=== PATIENT | female | born 1980 | race Hispanic/Latino ===

== ENCOUNTER 2022-09-28 10:38 | Inpatient (IN) | payer BC, SELFPAY ==
--- OUTSIDE RECORDS SUMMARY | 2022-09-28 10:43 | XMS REPORT | Continuity of Care Document ---
:1980 Author Organization [facility] t Address [address] [place] [address] Care Team Providers Name Role Phone Doctor Unassigned, [place] Attending Clinician Unavailable Pob1, Acute Care Clinic Attending Clinician Unavailable Negar Foote Attending Clinician Vineet Price Attending Clinician Vineet Price Admitting Clinician Payers Payer Name Policy Type Policy Number Effective Date Expiration Date S ource Problems Condition Condition Condition Status Onset Resolution Last Treating Co mments Source Name Details Category Date Date Treatment Clinician Date [id number], [id number], Diagnosis Active 2014-05-07 Me moria SLIPT BAND SLIPT BAND 05-03 17:22:00 l Active 00:00: Elmo 05/03/[address] [facility] Bowel Bowel Problem Active 2014-05-09 Christian jake finding finding 23:36:10 l (finding) (finding) Herm kristal Active Problem 05/09/2014 <sup>1</springer p>slippage of gastric band [facility] Reflux Reflux Problem Active 2014-05-09 Christian jake (finding) (finding) 23:36:10 l Active Mohsen Problem 05/09/[address] [facility] ADMINISTRT ADMINISTR Diagnosis Active 2014-05-07 Memoria VE ENCOUNT TVE 17:22:00 l NOS ENCOUNT Mohsen NOS Active [facility] No known No known Disease Unive rs active active ity of problems problems [facility] Allergies, Adverse Reactions, Alerts Allergy Allergy Status Severity Reaction(s) Onset Inactive Treating Comm ents Source Name Type Date Date Clinician NO KNOWN Drug Active Univers ALLERGIE Class ity of S [facility] Social History Social Habit Start Date Stop Date Quantity Comments Source Sex Assigned At [facility] Medical Branch Exposure to Not sure [facility] SARS-CoV-2 (event) Medica l Branch Social History 2014-05-03 2014-05-[address] [facility] 19:57:59 19:57:59 Smoking Status Start Date Stop Date Source Never smoker [facility] Medications Ordered Filled Start Stop Current Ordering Indication Dosage Frequency Signature Comments Components Source Medication Medication Date Date Medication? Clinician (SIG) Name Name TRI-SPRINTE 2020-0 Yes 1{tbl} Take 1 Un toshia C 6-03 tablet by ity of 0.18/0.215/ 00:00: mouth [place] 0.25 mg-35 00 daily. Medical mcg (28) Branch per tablet TRI-SPRINTE 2019-0 Yes 1{tbl} Take 1 Un toshia C 6-03 tablet by ity of 0.18/0.215/ 00:00: mouth [place] 0.25 mg-35 00 daily. Medical mcg (28) Branch per tablet lamoTRIgine 2019-0 Yes Univer s 100 mg 5-28 ity of tablet 00:00: [facility] traZODone 2019-0 Yes Univers 50 mg 5-28 ity of tablet 00:00: [facility] desvenlafax 2019-0 Yes Univer s ine 5-28 ity of succinate 00:00: [place] 25 mg Tb24 [facility] lamoTRIgine 0 Yes Univer s 100 mg 5-28 ity of tablet 00:00: [place] [facility] traZODone 2019-0 Yes Univers 50 mg 5-28 ity of tablet 00:00: [place] [facility] desvenlafax 2019-0 Yes Univer s ine 5-28 ity of succinate 00:00: [place] 25 mg Tb24 [facility] FLUoxetine 0 Yes Univers 20 mg 4-06 ity of capsule 00:00: [place] 00 [facility] FLUoxetine 2019-0 Yes Univers 20 mg 4-06 ity of capsule 00:00: [place] 00 [facility] Famotidine No Notes: Memor ia 05-07 (Same as: l 02:00: Pepcid) Can be dilute in 5-10cc NS IVP: Slow IV push over at least 2 minutes. Ketorolac No 4 days Memor ia 05-06 l 23:00: Elmo Sodium No 25 mL, Memoria Chloride 05-06 Route: IV, l 0.9% IV 22:22: Start Mohsen date: 05/06/14 17:22:00, Duration: 30 day, Stop date: 06/05/14 17:21:00, PRN Line Flush BD Normal No Notes: Memori a Saline 05-06 (Same as: l Flush 22:22: BD Posiflush) Protonix + No Notes: For M emoria sodium 05-06 IV push l chloride 10 21:00: reconstitu te with 10 ml 0.9% sodium chloride and push over 2 minutes. (Same as: Protonix) Metoclopram No Notes: Christian jake kevin 05-06 (Same as: l 21:00: Reglan) Hydromorpho No Notes: Christian jake ne 05-06 (Same as: l 20:30: Dilaudid) conc = 0.5 mg/ml Hydromorph one [employer]ACHINE [employer] Dose: ;Delay: ;Basal: Naloxone No Notes: Memoria 05-06 Same as l 20:25: Narcan Naloxone No 0.04 mg, Memor ia 05-06 Route: l 20:23: IVP, Mohsen 00 Q2MIN, Dosing Weight 85.455, kg, PRN Narcotic Reversal, Start date: 05/06/14 15:23:00, Duration: 30 day, Stop date: 06/05/14 15:22:00 Acetaminoph No Notes: Do M emoria en 20 MG/ML 05-06 not exceed l / 20:23: 4gm/day of Mohsen Hydrocodone acetaminop Bitartrate hen. (Same 0.667 MG/ML as: [place] Oral 325/7.5) Solution Promethazin No Notes: Do M emoria e 05-06 not give l 20:23: IV push. (Same as: Phenergan) enalaprilat No Notes: Christian jake 05-06 (Same as: l 20:23: Vasotec-IV ) Calcium No 1,000 mL, Memor ia Chloride 05-06 Rate: 125 l 0.0014 20:23: ml/hr, Elmo MEQ/ML / 00 Infuse Potassium over: 8 Chloride hr, Route: 0.004 IV, Dosing MEQ/ML / Weight Sodium 85.455 kg, Chloride Total 0.103 Volume: MEQ/ML / 1,000, Sodium Start Lactate date: 0.028 05/06/14 MEQ/ML 15:23:00, Injectable Duration: Solution 30 day, Stop date: 06/05/14 15:22:00 Ondansetron No Notes: Christian jake 05-06 (Same as: l 20:23: Zofran) Mohsen 00 Sodium No 100 mL, Memoria Chloride 05-06 Rate: 10 l 0.154 20:13: ml/hr, Elmo MEQ/ML 00 Infuse Injectable over: 10 Solution hr, Route: IVPB, Dosing Weight 85.455 kg, Total Volume: 100, Infuse at 8 mg / hr for 72 hours for GI bleeding, Start date: 05/06/14 15:13:00, Duration: 72 hr, Stop date: 05/09/14 15:12:00 Ancef No 1 gm, Memoria 05-06 Route: l 19:30: IVPB, Elmo 00 ONCE, Dosing Weight 85.455, kg, Start date: 05/06/14 14:30:00, Duration: 1 doses or times, Stop date: 05/06/14 14:30:00 Ondansetron No Notes: Christian jake 05-06 (Same as: l 18:53: Zofran) Elmo 00 Ephedrine No Notes: Memori a 05-06 (Same as: l 18:53: ePHEDrine Elmo 00 Sulfate) Naloxone No Notes: Memoria 05-06 Same as l 18:53: Narcan Elmo 00 Flumazenil No Notes: Memor ia 05-06 (Same as: l 18:53: Romazicon) Mohsen 00 Calcium No 1,000 mL, Memor ia Chloride 05-06 Rate: 125 l 0.0014 18:53: ml/hr, Mohsen MEQ/ML / 00 Infuse Potassium over: 8 Chloride hr, Route: 0.004 IV, Dosing MEQ/ML / Weight Sodium 85.455 kg, Chloride Total 0.103 Volume: MEQ/ML / 1,000, Sodium Start Lactate date: 0.028 05/06/14 MEQ/ML 13:53:00, Injectable Duration: Solution 30 day, Stop date: 06/05/14 13:52:00 Morphine No Notes: Memoria 05-06 (Same l 18:53: as:MORPhin Mohsen 00 e Sulfate) Hydromorpho No Notes: Christian jake ne 05-06 (Same as: l 18:53: Dilaudid) Elmo Acetaminoph No Notes: Christian jake en 05-06 Infuse l 18:53: over 15 Elmo 00 minutes Do not exceed 4gm/day of acetaminop hen Nexium Yes one tablet Memor ia 9-05 (mg l 19:48: unknown), Elmo 00 PO, Daily, 0 Refill(s) Ranitidine No one tablet M emoria 9-05 (mg l 19:48: unknown), Elmo 00 PO, PRN, reflux, 0 Refill(s) Vital Signs Vital Name Observation Time Observation Value Comments Source Systolic blood 2020-02-18 14:25:00 109 mm[Hg] [facility] Diastolic blood 2020-02-18 14:25:00 69 mm[Hg] [facility] Heart rate 2020-02-18 14:25:00 82 /min [facility] Body temperature 2020-02-18 14:25:00 35.89 Aurelia [facility] Respiratory rate 2020-02-18 14:25:00 18 /min [facility] Body height 2020-02-18 14:25:00 157.5 cm [facility] Body weight 2020-02-18 14:25:00 70.308 kg [facility] BMI 2020-02-18 14:25:00 28.35 kg/m2 [facility] Oxygen saturation in 2020-02-18 14:25:00 98 /min [facility] Arterial blood by [facility] Pulse oximetry Branch Respitory Rate 2014-05-07 16:21:00 Ervin Mei Heart Rate 2014-05-07 16:21:00 [facility] Mohsen Diastolic (mm Hg) 2014-05-07 16:21:00 Mem orial Mohsen Systolic (mm Hg) 2014-05-07 16:21:00 Christian rial Mohsen Temperature Oral (F) 2014-05-07 16:21:00 98.2 F [facility] [place] Temperature Oral (F) 2014-05-07 12:00:00 97.7 F [facility] Respitory Rate 2014-05-07 12:00:00 Memori al Mohsen Heart Rate 2014-05-07 12:00:00 [facility] [place] Systolic (mm Hg) 2014-05-07 12:00:00 Christian rial Elmo Diastolic (mm Hg) 2014-05-07 12:00:00 Mem orial [place]sen Heart Rate 2014-05-07 09:00:00 [facility] [place] Systolic (mm Hg) 2014-05-07 09:00:00 Christian rial Elmo Respitory Rate 2014-05-07 09:00:00 Memori al Elmo Diastolic (mm Hg) 2014-05-07 09:00:00 Mem orial Elmo Temperature Oral (F) 2014-05-07 09:00:00 98.1 F [facility] [place] BMI Calculated 2014-05-03 19:52:00 Memori al Moh[place] Weight 2014-05-03 19:52:00 [facility] [place] Height 2014-05-03 19:52:00 157.48 cm [facility] Elmo Procedures Procedure Date / Time Performing Clinician Source Performed Cholecystectomy [facility] Mohsen Laparoscopic adjustable [facility] gastric banding Encounters Start End Encounter Admission Attending Care Care Encounter Source Date/Time Date/Time Type Type Clinicians Facility Department ID 2020-02-20 2020-02-20 Patient Doctor ELIZABETH [id number] Univers 00:00:00 00:00:00 Secure Msg Unassigned, SATISH [id number] ity of [place] [facility] [id number] Luiz as [id number] [address] 2020-02-18 2020-02-18 Outpatient R [facility] [id number] Univers 09:40:00 09:40:00 ity of [facility] 2020-02-18 2020-02-18 Urgent Pob1, Acute Care Clinic RUST 1. [id number] Univers 09:14:12 09:34:12 [facility] [id number] [place] [id number] Luiz as Matias [id number] Ms dical nal [address] 2014-05-06 2014-05-07 Inpatient Chayito [facility] [id number] Shannan 20:23:00 18:30:00 r Elmo [address] [facility] 2014-05-06 2014-05-07 Outpatient Albert, [id number] 15:23:00 13:30:00 Vineet P [id number] 01 Results Test Description Test Time Test Comments Results Result Sour e Comments SCR MAMM 2021-09-09 BILATERAL SD 08:33:13 CAD DIGITAL Name: Luann : 1980 Sex: F - SCR MAMM BILATERAL SD CAD DIGITALBILATERAL FIRST EVER DIGITAL SCREENING MAMMOGRAM 3D/2D WITH CAD: 2CLINICAL: Asymptomatic. Digital breast tomosynthesis was performed in addition to routine CC and MLO views. Current mammographic images were evaluated by either a [employer] M-Vu or a Dr [employer] ImageChecker CAD (computer aided detection system). No prior exams were available for comparison. The tissue of both breasts is heterogeneously dense. This may lower the sensitivity of mammography. There are benign appearing calcifications in both breasts. No suspicious mass, architectural distortion, malignant type calcification, or lymph node abnormality detected. IMPRESSION: BENIGNThere is no mammographic evidence of malignancy. Resume annual screening mammography in one year. Alberto Lanza/souravrad:09/09/2021 08:33:13 Category Development Manager: Fabiola Shelby MM, [facility] Mammographyletter sent: BIRADS 1-2 Normal Mammogram BI-RADS: 2 Benign HEMATOLOGY 2014-05-07 10:09:00 Test Item Value Reference Range Interpretation Comme nts MCV (test code = MCV) 82.1 80.0-98.0 [facility] [place] [id number] 10:09:00 Test Item Value Reference Range Interpretation Comments RDW (test code = RDW) 13.9 11.5-14.5 [facility] [place] [facility]bu[id number] 10:09:00 Test Item Value Reference Range Interpretation Comments Hgb (test code = Hgb) 12.0 12.0-16.0 [facility] [place] [facility]burgTfzavpsKNOMQDOCRI5717-72-97 10:09:00 Test Item Value Reference Range Interpretation Comments Hct (test code = Hct) 36.2 36.0-48.0 [facility] [place] [facility]burgEjwqtzdIJRSVOCQDI0513-03-68 10:09:00 Test Item Value Reference Range Interpretation Comments MCH (test code = MCH) 27.4 pg 27.0-31.0 [facility] [place] [facility]burgWukrqshTFBRVZPPXY8448-18-20 10:09:00 Test Item Value Reference Range Interpretation Comments MPV (test code = MPV) 8.7 7.4-10.4 [facility] [place] [facility]burgPprzigqBNDRDSQOIE6606-30-61 10:09:00 Test Item Value Reference Range Interpretation Comments MCHC (test code = MCHC) 33.3 32.0-36.0 [facility]burgOztxtjkVGRRPSOHQE3801-11-09 10:09:00 Test Item Value Reference Range Interpretation Comments Platelet (test code = Platelet) 304 133-450 [facility]inburgVpfkijwANCCLMJIRQ7060-87-92 10:09:00 Test Item Value Reference Range Interpretation Comments WBC (test code = WBC) 15.3 3.7-10.4 [facility] [place] [facility]inburgBwafcjqENYFULSEPT9783-37-31 10:09:00 Test Item Value Reference Range Interpretation Comments RBC (test code = RBC) 4.40 4.20-5.40 [facility] [place] [facility]burgPfzbnqwTICJKRCTSG1476-09-88 10:09:00 Test Item Value Reference Range Interpretation Comments Monocytes (test code = Monocytes) 3.6 2.0-12.0 [facility] [place] [facility]burgRosizhjMSPHIFSUAZ1953-03-82 10:09:00 Test Item Value Reference Range Interpretation Comments Lymphocytes (test code = Lymphocytes) 6.9 20.0-40.0 [facility] [place] [facility]inbu[id number] 10:09:00 Test Item Value Reference Range Interpretation Comments Eosinophils (test code = 0.0 See_Comment [A utomated message] The Eosinophils) system which ge nerated this result tra nsmitted reference range : <=4.0. The reference r baltazar was not used to int erpret this result as normal/abnormal . [facility][id number] 10:09:00 Test Item Value Reference Range Interpretation Comments Segs (test code = Segs) 89.5 45.0-75.0 [facility] [place] [facility]burgWntmnqfTCHJAXHQJM1131-20-05 10:09:00 Test Item Value Reference Range Interpretation Comments Eosinophils # (test code 0.0 See_Comment [A utomated message] The = Eosinophils #) system whic h generated this result tra nsmitted reference range : <=0.5. The reference r baltazar was not used to int erpret this result as normal/abnormal . [facility] Edinbu[id number] 10:09:00 Test Item Value Reference Range Interpretation Comments Plt Morph (test code = Normal (05/07/14 5:09 AM) Plt Morph) [facility] E[id number] 10:09:00 Test Item Value Reference Range Interpretation Comments RBC Morph (test code = Normal (05/07/14 5:09 AM) RBC Morph) [facility] EdinburgDwouxkkBUBMFRWHXF6531-48-89 10:09:00 Test Item Value Reference Range Interpretation Comments Monocytes # (test code 0.6 See_Comment [Aut omated message] The = Monocytes #) system which generated this result tra nsmitted reference range : <=0.8. The reference r baltazar was not used to int erpret this result as normal/abnormal . [facility] EdinburgJ[id number] 10:09:00 Test Item Value Reference Range Interpretation Comments Lymphocytes # (test code = Lymphocytes 1.1 1.0-5.5 #) [facility] Ed[id number] 10:09:00 Test Item Value Reference Range Interpretation Comments Segs-Bands # (test code = Segs-Bands #) 13.7 1.5-8.1 [facility] E[id number] 10:09:00 Test Item Value Reference Range Interpretation Comments PTT (test code = PTT) 30.1 s 22.9-35.8 [facility]
[2022-09-28 10:59] LABS: Absolute Lymphocytes (CBC) 1.3 K/uL (0.7-4.9); Hematocrit 35.1 % (36.0-45.0); Lymphocytes % 9.7 % (15.3-44.8); MCV 73.1 fL (80-100); MPV 7.6 fL (7.6-11.3)
[2022-09-28 11:04] LABS: Protime INR 1.04
[2022-09-28] MEDS ORDERED: NA CHLORIDE 0.9% 1,000 ML ONE (11:20)
[2022-09-28 11:21] LABS: ALT/SGPT 37 U/L (13-56); AST/SGOT 28 U/L (15-37); Albumin 3.9 g/dL (3.4-5.0); Alkaline Phosphatase 82 U/L (45-117); BUN Blood Urea Nitrogen 11 mg/dL (7-18); Bicarbonate 19 mmol/L (21-32); Bilirubin Direct 0.1 mg/dL (0-0.2); Bilirubin Total 0.4 mg/dL (0.2-1.0); Glomerular Filtration Rate 65 ml/min (=/>90); Glucose Level 155 mg/dL (74-106); Potassium 4.3 mmol/L (3.5-5.1); Protein, Total 8.2 g/dL (6.4-8.2); Sodium Level 137 mmol/L (136-145)
--- NOTE | 2022-09-28 11:40 | RAD REPORT ---
EXAM DESCRIPTION: CT - Head Brain Wo Cont - 09/28/2022 10:56 am CLINICAL HISTORY: new onset seizure COMPARISON: No comparisons TECHNIQUE: Axial 5 mm thick images of the head were obtained without IV contrast. All CT scans are performed using dose optimization technique as appropriate and may include automated exposure control or mA/KV adjustment according to patient size. FINDINGS: No intracranial hemorrhage, mass, edema or shift of mid-line structures. No acute infarcti on changes seen. No abnormal extra-axial fluid collections. Ventricles are normal. Mastoid air cells and visualized portions of the paranasal sinuses are clear. No acute bony findings. IMPRESSION: Negative non-contrast CT head examination.
[2022-09-28 13:19] LABS: Anisocytosis 1+; Blood Morphology Comment NOTED (NOT SEEN); Hypochromasia 1+; Platelet Estimate INCR; Rouleau SLIGHT; White Blood Cell Scan OK (OK)
--- NOTE | 2022-09-28 13:38 | EDPHYS ---
Physician Documentation [facility] Name: Heather Pearce Age: 42 yrs Sex: Female : 1980 Arrival Date: 09/28/2022 Time: 10:40 Bed 18 Private MD: ED Physician Marcelino Zamudio HPI: 09/28 11:05 This 42 yrs old Female presents to ER via EMS with complaints of Probable rn Seizure. 11:05 The patient presents after having a possible seizure episode. Seizure onset: just prior rn to arrival. Context: the seizure(s) was witnessed, by family, occurred at home, occurred while the patient was at rest. Associated injury: The patient did not suffer any apparent associated injury. Current symptoms: confusion, headache. The patient has not experienced similar symptoms in the past. The patient has not recently seen a physician. EMS reports called out for possible seizure, had single shaking episode prior to arrival, no change in medication, no hx of seizures, no trauma related to or prior to seizure. No fever. NO recent illness. Pt is daily drinker and states last drink yesterday. Denies drug use. Denies overdose or suicidal ideation/intent. . ANALYTICS ASSOCIATE: 10:53 LMP N/A - control method jl Historical: - Allergies: 10:53 No Known Allergies; jl - Home Meds: 10:53 Bupropion Oral [Active]; Focalin oral [Active]; jl7 - PMHx: 10:53 depressive disorder; jl7 - Immunization history:: Adult Immunizations unknown. - Social history:: Smoking status: unknown. - Family history:: not pertinent. - Hospitalizations: : No recent hospitalization is reported. ROS: 13:24 Constitutional: Negative for fever, chills, and weight loss, Eyes: Negative for injury, rn pain, redness, and discharge, Cardiovascular: + palpitations Respiratory: Negative for shortness of breath, cough, wheezing, and pleuritic chest pain, Abdomen/GI: + nausea MS/Extremity: Negative for injury and deformity, Skin: Negative for injury, rash, and discoloration, Neuro: + headache and generalized weakness, + tremors, feels off balance Exam: 13:24 Constitutional: This is a well developed, well nourished patient who is awake, alert, rn apperas both post-ictal and encephalopathic Head/Face: Normocephalic, atraumatic. Eyes: + mild nystagmus bilaterally, pupils 5mm ENT: No oral trauma Neck: No Meningismus. Cardiovascular: Tachycardic, regular Respiratory: No increased work of breathing, no retractions or nasal flaring. Abdomen/GI: Soft, non-tender Skin: Warm, dry, no cyanosis or rash MS/ Extremity: Pulses equal, no cyanosis. Neurovascular intact. Full, normal range of motion. Equal circumference. Neuro: Awake and alert, GCS 15, oriented to person, place, not time. + truncal ataxia, unable to ambulate without assistance. Cranial nerves II-XII grossly intact. Motor strength 4/5 in all extremities with tremor and myoclonus. Sensory grossly intact. 13:43 ECG was reviewed by the Attending Physician. rn Vital Signs: 10:48 BP 101 / 67; Pulse 111; Resp 15; Temp 97.9; Pulse Ox 97% on R/A; jl7 11:57 BP 105 / 75; Pulse 103; Resp 16; Pulse Ox 99% on R/A; iw 14:55 BP 111 / 67; Pulse 99; Resp 18; Pulse Ox 99% on R/A; iw 09/29 07:29 BP 104 / 71; Pulse 93; Resp 17; Temp 98.7(O); Pulse Ox 99% on R/A; kr3 Marcio Coma Score: 09/28 10:53 Eye Response: spontaneous(4). Verbal Response: confused(4). Motor Response: obeys jl7 commands(6). Total: 14. MDM: 10:41 Patient medically screened. rn 12:40 Differential diagnosis: drug overdose, cardiac arrhythmia, seizure. Data reviewed: rn vital signs, nurses notes, lab test result(s), EKG, radiologic studies, CT scan, and as a result, I will admit patient. Management of patient was discussed with the following: Poison control center. Counseling: I had a detailed discussion with the patient and/or guardian regarding: the historical points, exam findings, and any diagnostic results supporting the discharge/admit diagnosis, lab results, radiology results, the need for further work-up and treatment in the hospital, the need to transfer to another facility, [facility] does not immediately have the required specialist. Response to treatment: the patient's symptoms have mildly improved after treatment. ED course: Pt reevaluated, now admits to taking unknown number of duloxetine, bupropion, and focalin around 10 PM last night. This makes much more sense given ataxia and tremors. Pt placed on suicide precautions. . 13:33 ED course: Poison control center recommends admission for 24 hour observation given rn extended release formulation. Pt exhibiting altered mental status, tremor, ataxia. Admitted to Dr. Lindquist. . 09/28 10:44 Order name: CBC with Diff; Complete Time: 13:40 09/28 10:44 Order name: Basic Metabolic Panel; Complete Time: 11:51 rn 09/28 10:44 Order name: Protime (+inr); Complete Time: 11:51 09/28 10:44 Order name: Ptt, Activated; Complete Time: 11:51 09/28 10:44 Order name: LFT's; Complete Time: 11:51 09/28 10:44 Order name: Acetaminophen; Complete Time: 11:51 09/28 10:44 Order name: ETOH Level; Complete Time: 11:51 09/28 10:44 Order name: Salicylate; Complete Time: 11:51 09/28 10:44 Order name: Urine Drug Screen 09/28 13:19 Order name: CBC Smear Scan; Complete Time: 13:40 [facility] 09/28 13:49 Order name: SARS-COV-2 Antigen Rapid 09/28 15:13 Order name: Creatine Phosphokinase [facility] 09/28 15:13 Order name: Magnesium [facility] 09/28 15:13 Order name: Phosphorus [facility] 09/28 15:13 Order name: T4 Free [facility] 09/28 15:13 Order name: Thyroid Stimulating Hormone [facility] 09/28 15:13 Order name: Urinalysis [facility] 09/28 15:13 Order name: Basic Metabolic Panel [facility] 09/28 15:13 Order name: Basic Metabolic Panel [facility] 09/28 15:13 Order name: CBC with Automated Diff [facility] 09/28 15:13 Order name: CBC with Automated Diff [facility] 09/28 17:59 Order name: Urine Dipstick-Ancillary [facility] 09/28 18:02 Order name: Urine --Ancillary (enter results) 09/28 18:09 Order name: Urine --Ancillary [facility] 09/29 00:54 Order name: Lactate w/ 2H reflex if indic. [facility] 09/29 03:57 Order name: Lipid Profile [facility] 09/30 00:36 Order name: Blood Culture [facility] 09/30 00:44 Order name: Blood Culture [facility] 09/30 02:27 Order name: Hemoglobin [facility] 09/30 02:27 Order name: Hematocrit [facility] 09/28 10:44 Order name: CT Head Brain wo Cont; Complete Time: 11:51 rn 09/28 10:44 Order name: IV Start; Complete Time: 10:55 rn 09/28 10:44 Order name: EKG; Complete Time: 10:47 rn 09/28 10:44 Order name: EKG - Nurse/Tech; Complete Time: 10:55 rn 09/28 10:44 Order name: Labs collected and sent; Complete Time: 10:55 rn 09/28 10:44 Order name: Urine Dipstick-Ancillary (obtain specimen); Complete Time: 18:20 rn 09/28 10:44 Order name: Urine Test (obtain specimen); Complete Time: 18:20 rn 09/28 10:44 Order name: Cardiac monitoring; Complete Time: 10:55 rn 09/28 13:39 Order name: Suicide Precautions; Complete Time: 19:23 rn 09/28 13:39 Order name: Suicide Screening ([place]); Complete Time: 19:23 rn 09/28 14:56 Order name: Regular [facility] 09/29 07:17 Order name: Diet Finger Food; Complete Time: 07:18 kr3 09/29 11:00 Order name: MRI [facility] EC:43 Rate is 104 beats/min. Rhythm is regular. QRS [place] is Normal. CT interval is normal. rn QRS interval is normal. QT interval is normal. No Q waves. T waves are Normal. No ST changes noted. Clinical impression: Sinus tachycardia. Interpreted by me. Reviewed by me. Administered Medications: 11:30 Drug: NS 0.9% 1000 ml Route: IV; Rate: 1000 ml; Site: left antecubital; iw 15:15 Follow up: IV Status: Completed infusion iw 12:23 CANCELLED (wrong ptt): Dextrose 10 % in Water 200 ml IV at bolus once jl7 Disposition Summary: 09/28/22 13:38 Hospitalization Ordered Hospitalization Status: Observation rn Provider: Pardeep Lindquist rn Condition: Stable rn Problem: new rn Symptoms: have improved rn Bed/Room Type: Standard rn Location: [facility] ER HOLD(09/30/22 18:56) Room Assignment: ERHOLD-(09/30/22 18:56) Diagnosis - Altered mental status, unspecified rn - Other seizures rn - Suicidal ideations rn - Intentional overdose rn - Serotonin Syndrome rn Forms: - Medication Reconciliation Form rn - SBAR form rn Signatures: Dispatcher [employer] EDNicci Munoz, RN RN Marcelino Zamudio MD MD rn Martinez, Eric em1 Jenifer Aparicio RN RN Kike Quarles, RN RN 7 Long Carter, RN RN [facility] Corrections: (The following items were deleted from the chart) 12:23 12:20 Dextrose 10 % in Water 200 ml IV at bolus once ordered. jl7 marsha7 12:23 12:22 Dextrose 10 % in Water 200 ml IV at bolus once given. marsha7 [email or web address] 12:23 12:22 Dextrose 10 % in Water 200 ml IV at bolus once ordered. jl7 marsha7 19:04 13:38 Telemetry/MedSurg (observation) rn marsha7 19:04 13:38 rn marsha7 09/30 15:56 09/28 19:04 [facility] ER HOLD jl7 09/30 15:56 09/28 19:04 ERHOLD- jl7 1 09/30 17:31 15:56 402 1 em1 18:56 15:56 Telemetry/MedSurg (observation) [facility] 18:56 17:31 em1
--- NOTE | 2022-09-28 13:38 | ER ---
Nurse's Notes [facility] Name: Heather Pearce Age: 42 yrs Sex: Female : 1980 Arrival Date: 09/28/2022 Time: 10:40 Bed 18 Private MD: Diagnosis: Altered mental status, unspecified;Other seizures;Suicidal ideations;Intentional overdose;Serotonin Syndrome Presentation: 09/28 10:40 Chief complaint: EMS states: Toned out for possible seizure, no hx of seizures, long jl7 standing ETOH use, reports 3 beers/day, unsure when last drink was. 10:48 Coronavirus screen: At this time, the client does not indicate any symptoms associated jl7 with coronavirus-19. Ebola Screen: No symptoms or risks identified at this time. Initial Sepsis Screen: Does the patient meet any 2 criteria? No. Patient's initial sepsis screen is negative. Does the patient have a suspected source of infection? No. Patient's initial sepsis screen is negative. Risk Assessment: Do you want to hurt yourself or someone else? Patient reports no desire to harm self or others. Onset of symptoms was September 28, 2022. Care prior to arrival: Glucose check: 152. 10:48 Method Of Arrival: EMS: [facility] jl7 10:48 Acuity: ZANDER 3 jl7 Triage Assessment: 10:53 General: Appears in no apparent distress. uncomfortable, Behavior is calm, cooperative, jl7 appropriate for age. Pain: Denies pain. Neuro: Level of Consciousness is awake, alert, obeys commands, Oriented to person, place. Cardiovascular: Patient's skin is warm and dry. Respiratory: Airway is patent Respiratory effort is even, unlabored, Respiratory pattern is regular, symmetrical. Derm: Skin is pink, warm \\T\\ dry. 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 - Social history:: Smoking status: unknown. - Family history:: not pertinent. - Hospitalizations: : No recent hospitalization is reported. Screenin:56 [facility] ED Fall Risk Assessment (Adult) History of falling in the last 3 months, iw including since admission No falls in past 3 months (0 pts) Confusion or Disorientation No (0 pts) Intoxicated or Sedated Impaired Gait No (0 pts) Mobility Assist Device Used No (0 pt) Score/Fall Risk Level. Nutritional screening: No deficits noted. Tuberculosis screening: No symptoms or risk factors identified. 18:00 Abuse screen: Denies threats or abuse. Denies injuries from another. jl7 Assessment: 11:00 Reassessment: Pt gave this nurse verbal authorization to discuss medical information jl7 with ex- and other family members that are in the room. 11:55 Reassessment: Patient appears in no apparent distress at this time. mother at bedside, iw IVF infusing to left AC. 12:50 Reassessment: Pt reported taking unknown amount of Duloxetine, bupropion, and Focalin aa5 to Dr. Zamudio. Contacted poison control, Case # [id number], spoke to Antione at [facility]. Recommendations per poison control are as follow: seizure precautions, supportive care, continuous monitoring, administer benzodiazepines as needed, monitor for at least 24 hrs post ingestion, pt is at risk for serotonin syndrome. MD notified of recommendations. . 14:54 Reassessment: Patient appears in no apparent distress at this time. pt still exhibiting iw shakiness and tremors, still seems confused at times, ex- at bedside. 15:13 Reassessment: pt assisted to bedside commode, still unsteady on feet, shaky, pt iw oriented to person, place, confused about time , pt unable to urinate at this time, will notify admitting hospitalist. 09/29 07:27 Reassessment: Patient appears in no apparent distress at this time. patient alone at kr3 this time, no shakes noted at this time. 08:17 Reassessment: patient to [facility]. kr3 09:08 Reassessment: back from [facility]. kr3 09/30 19:27 Reassessment: Patient and/or family updated on plan of care and expected duration. Pain ha1 level reassessed. Patient is alert, oriented x 3, equal unlabored respirations, skin warm/dry/pink. being transfer by [facility] Patient denies pain at this time. Psych: 07:05 [place] Suicide Severity Screening: In the past month, have you wished you were db or wished you could go to sleep and not wake up? Patient responds "yes." "In the past month, have you actually had any thoughts of killing yourself?" Patient responds "yes." "In your lifetime, have you ever done anything, started to do anything, or prepared to do anything to end your life?" Patient responds "yes." Patient reports suicidal intent within 3 past months. Subjective: Patient's mood is calm Delusions are denied, Hallucinations are denied Having thoughts of suicide. Plan for suicide is OD on medications see previous nursing note. Objective: Patient is cooperative, Speech is normal, Affect is appropriate. Interventions: Removed personal items and placed in bag. Patient placed in hospital gown. Safety Checks: Door is open. No visitors are present at this time. Pt denies substance abuse. Commitment: Patient will be a voluntary commitment. Vital Signs: 09/28 10:48 BP 101 / 67; Pulse 111; Resp 15; Temp 97.9; Pulse Ox 97% on R/A; jl7 11:57 BP 105 / 75; Pulse 103; Resp 16; Pulse Ox 99% on R/A; iw 14:55 BP 111 / 67; Pulse 99; Resp 18; Pulse Ox 99% on R/A; iw 09/29 07:29 BP 104 / 71; Pulse 93; Resp 17; Temp 98.7(O); Pulse Ox 99% on R/A; kr3 Gower Coma Score: 09/28 10:53 Eye Response: spontaneous(4). Verbal Response: confused(4). Motor Response: obeys jl7 commands(6). Total: 14. ED Course: 10:40 Patient arrived in ED. jl7 10:41 Marcelino Zamudio MD is Attending Physician. rn 10:53 Triage completed. jl7 10:53 Arm band placed on right wrist. jl7 10:55 Kike Quarles RN is Primary Nurse. jl7 10:58 CT Head Brain wo Cont In Process Unspecified. EDMS 11:00 Patient has correct armband on for positive identification. Client placed on continuous jl7 cardiac and pulse oximetry monitoring. NIBP monitoring applied. 11:56 Maintain EMS IV. Dressing intact. Good blood return noted. Site clean \\T\\ dry. Gauge \\T\\ iw site: 20 LAC. 12:00 Initial lab(s) drawn, by ED staff, sent to lab. jl7 13:37 Pardeep Lindquist MD is Hospitalizing Provider. rn 15:00 No provider procedures requiring assistance completed. Patient admitted, IV remains in jl7 place. intact, No redness/swelling at site. 15:00 EKG done, by ED staff, reviewed by Marcelino Zamudio MD. jl7 19:22 Primary Nurse role handed off by Kike Quarles RN mw2 19:24 Seizure precautions initiated. jl7 09/29 08:17 Radha Ritter, RN is Primary Nurse. kr3 Administered Medications: 09/28 11:30 Drug: NS 0.9% 1000 ml Route: IV; Rate: 1000 ml; Site: left antecubital; iw 15:15 Follow up: IV Status: Completed infusion iw 12:23 CANCELLED (wrong ptt): Dextrose 10 % in Water 200 ml IV at bolus once jl7 Medication: 11:56 VIS not applicable for this client. iw Outcome: 13:38 Decision to Hospitalize by Provider. rn 18:00 Admitted to ER Hold. Please see [facility] for further documentation. jl7 18:00 Condition: stable 18:00 Discharge instructions given to patient, family, Instructed on the need for admit, Demonstrated understanding of instructions. 09/30 19:34 Patient left the ED. ha1 Signatures: Dispatcher [employer] EDMS Nicci Mendoza, HENRY FIGUEROA Marcelino Zamudio MD MD rn Calderon, Audri RN RN 5 Kike Quarles RN RN 7 Letha Su mw2 Esther Ramos RN RN ha1 Radha Ritter, HENRY FIGUEROA 3 Nehal Trujillo RN RN db Corrections: (The following items were deleted from the chart) 09/28 12:22 11:45 Dextrose 10 % in Water 200 ml IV at bolus in right forearm jl7 jl7 13:27 12:50 Reassessment: Contacted poison control, Case # [id number], spoke to Antione at [address] location. Recommendations per poison control are as follow: seizure precautions, supportive care, continuous monitoring, administer benzodiazepines as needed, monitor for at least 24 hrs post ingestion, pt is at risk for serotonin syndrome. notified of recommendations. . aa5
[2022-09-28] MEDS ORDERED: ACETAMINOPHEN 325 MG TABLET PO PRN (14:48)
[2022-09-28 15:07] LABS: SARS-CoV-2 Antigen Rapid Res Negative (Negative)
[2022-09-28] MEDS ORDERED: ONDANSETRON 4 MG/2 ML VIAL IV PRN (15:19)
[2022-09-28 17:01] LABS: Magnesium 2.2 mg/dL (1.6-2.4); Phosphorus 4.5 mg/dL (2.5-4.9); Thyroid Stimulating Hormone 1.57 uIU/mL (0.358-3.740)
[2022-09-28 17:59] LABS: Urine Blood Negative (Negative); Urine Glucose Negative (Negative); Urine Protein 1+ (Negative); Urine Specific Gravity >=1.030 (1.005-1.030)
[2022-09-28] MEDS: chlordiazePOXIDE HCl 5 MG CAP PO SCH (18:00)
[2022-09-28] MEDS ORDERED: chlordiazePOXIDE HCl 5 MG CAP PO ONE ×2 (18:07→21:23)
[2022-09-28] MEDS ORDERED: ENOXAPARIN 40 MG/0.4 ML SQ ONE (18:07)
[2022-09-28 18:09] LABS: Urine Specific Gravity/Preg >1.030 (1.005-1.030)
[2022-09-28] MEDS: ENOXAPARIN 40 MG/0.4 ML SQ SCH (18:18)
[2022-09-28 18:23] LABS: Barbiturates NEGATIVE (NEGATIVE); Benzodiazepines NEGATIVE (NEGATIVE); Cocaine NEGATIVE (NEGATIVE); METHAMPHETAM NEGATIVE (NEGATIVE); Methadone NEGATIVE (NEGATIVE); Opiates NEGATIVE (NEGATIVE); Phencyclidine NEGATIVE (NEGATIVE); THC Cannibis NEGATIVE (NEGATIVE)
--- NOTE | 2022-09-28 19:15 | P.HP ---
Certification for Inpatient Patient admitted to: Inpatient With expected LOS: >2 Midnights Patient will require the following post-hospital care: None Practitioner: I am a practitioner with admitting privileges, knowledge of patient current condition, hospital course, and medical plan of care. Services: Services provided to patient in accordance with Admission requirements found in Title 42 Section 412.3 of the Code of Federal Regulations <Erick Buenrostro - Last Filed: 09/28/22 19:39> Patient History Date of Service: 09/28/22 Reason for admission: Suicide attempt. History of Present Illness: Patient is a 42-year-old female with a past medical history significant for depression, suicide attempt, ADHD, nicotine dependence, alcohol abuse who presents with complaint of attempted suicide. Patient reported that she wanted to commit suicide due to her inability to find a job. Patient took multiple tablets of duloxetine, bupropion and Focalon. Patient indicated that she does not remember how many tablets she took. Patient is alert and oriented x2 and confused. Family reported that patient's son called them that her mother was not doing fine and patient's father went to see her and he noticed that patient was not well. Shortly after patient started having seizures. Patient has never had any seizures in the past. Family reported that patient had seizures for about a minute. No other signs and symptoms reported. Symptoms are aggravated or relieved by nothing. Patient was brought to the hospital for medical evaluation. - Past Medical/Surgical History Has patient received pneumonia vaccine in the past: No -: Depression -: ADHD -: Nicotine dependence -: Alcohol abuse Past Surgical History: Reviewed- Non-Contributory - Social History Smoking Status: Current every day smoker Counseled patient to stop smoking for: less than 10 minutes Smoking therapy provided: Yes Patient receptive to therapy: No Alcohol use: Yes CD- Drugs: No Caffeine use: No Place of Residence: Home <Erick Buenrostro - Last Filed: 09/28/22 19:39> Date of Service: 09/29/22 <Pardeep Lindquist - Last Filed: 09/29/22 00:03> Allergies No Known Allergies Allergy (Unverified 09/28/22 15:23) Home Medications: Dexmethylphenidate HCl [Focalin] 10 mg PO BID 09/28/22 Duloxetine HCl 60 mg PO BEDTIME 09/28/22 Review of Systems is unable to be obtained (Unable to assess. Patient confused.) <Erick Buenrostro - Last Filed: 09/28/22 19:39> Physical Examination - Vital Signs Temperature: 97.9 F Blood Pressure: 121/74 Pulse: 97 Respirations: 15 Pulse Ox (%): 99 - Physical Exam General: Alert, In no apparent distress, Oriented x2, Confused HEENT: Atraumatic, PERRLA, Mucous membr. moist/pink, EOMI, Sclerae nonicteric Neck: Supple, 2+ carotid pulse no bruit, No LAD, Without JVD or thyroid abnormality Respiratory: Clear to auscultation bilaterally, Normal air movement Cardiovascular: No edema, Regular rate/rhythm, Normal S1 S2 Capillary refill: <2 Seconds Gastrointestinal: Normal bowel sounds, No tenderness Musculoskeletal: No clubbing, No swelling, No tenderness Integumentary: No rashes, No tenderness/swelling Neurological: Normal speech, Normal tone, Normal affect Lymphatics: No axilla or inguinal lymphadenopathy - Studies Laboratory Data (last 24 hrs) 09/28/22 10:50: Phosphorus 4.5, Magnesium 2.2 09/28/22 10:50: PT 11.4, INR 1.04, APTT 26.9 09/28/22 10:50: Sodium 137, Potassium 4.3, BUN 11, Creatinine 1.09 H, Glucose 155 H, Total Bilirubin 0.4, AST 28, ALT 37, Alkaline Phosphatase 82 09/28/22 10:50: WBC 13.60 H, Hgb 10.7 L, Hct 35.1 L, Plt Count 457 H <Erick Buenrostro - Last Filed: 09/28/22 19:39> - Studies Laboratory Data (last 24 hrs) 09/28/22 10:50: Phosphorus 4.5, Magnesium 2.2 09/28/22 10:50: PT 11.4, INR 1.04, APTT 26.9 09/28/22 10:50: Sodium 137, Potassium 4.3, BUN 11, Creatinine 1.09 H, Glucose 155 H, Total Bilirubin 0.4, AST 28, ALT 37, Alkaline Phosphatase 82 09/28/22 10:50: WBC 13.60 H, Hgb 10.7 L, Hct 35.1 L, Plt Count 457 H <Pardeep Lindquist - Last Filed: 09/29/22 00:03> Assessment and Plan - Plan --Suicide attempt. Patient took multiple tablets of duloxetine, bupropion and Focalon pills. Suicide precautions. One-to-one sitter. Patient has a history of suicide attempt. No psychiatrist on-call today. Once patient is medically cleared, [facility] psychiatrist will be called for further management. Continue supportive care. --Depression\ADHD. We will hold off on home medication due to overdose on home medications. Continue supportive care. --Altered mental status. Secondary to medication overdose. CT head unremarkable for any acute intracranial abnormality. Continue supportive care. --Seizures. Patient has not had any seizures in the past. Unclear etiology. MRI brain pending. Neurology consulted. We will further recommendations. --Alcohol abuse. Patient placed on banana bag, Librium and Ativan as needed. [facility] protocol. --Leukocytosis. Likely reactive. We will continue to monitor WBC levels. --Anemia of chronic disease. H&H stable. We will continue to monitor hemoglobin and transfuse if less than 7.0. --UTI POA. Patient placed on antibiotics. Urine cultures pending. --DVT prophylaxis with Lovenox subq. Discharge Plan: Home Plan to discharge in: Greater than 2 days - Advance Directives Does patient have a Living Will: No Does patient have a Durable POA for Healthcare: No - Code Status/Comfort Care Code Status Assessed: Yes Physician Review: Patient Assessed, Agree with Above Assessment and Plan Critical Care: No <Erick Buenrostro - Last Filed: 09/28/22 19:39> Physician Review: Patient Assessed, Agree with Above Assessment and Plan Physician Review Additional Text: She meets sepsis criteria based on heart rate and leukocytosis, with concern for UTI. Will add lactate and blood cultures. Once medically stable, will consult [facility]. In the interim, will place on suicide precautions. <Pardeep Lindquist - Last Filed: 09/29/22 00:03>
[2022-09-28] MEDS ORDERED: INFLUENZA VACCINE (for 6+ mo) 0.5 ML DOSE IMVAC ONE ×2 (20:00→21:25)
[2022-09-28] MEDS: CEFTRIAXONE 1,000 MG in NA CHLORIDE 0.9% 50 ML IVPB SCH (21:00)
[2022-09-28] MEDS ORDERED: NA CHLORIDE 0.9% 100 ML ONE ×2 (21:23→21:28)
[2022-09-28] MEDS ORDERED: CEFTRIAXONE 1000 MG/VIAL ONE (21:23)
[2022-09-29] MEDS ORDERED: LORazepam 2 MG/ML VIAL IV ONE (00:04)
[2022-09-29] MEDS ORDERED: LORazepam 2 MG/ML VIAL ONE ×3 (00:08→21:57)
[2022-09-29 02:56] LABS: Hematocrit 29.6 % (36.0-45.0); MCV 71.8 fL (80-100); MPV 7.6 fL (7.6-11.3); RBC Red Blood Cell Count 4.12 M/uL (3.86-4.86)
[2022-09-29 03:39] LABS: Potassium 3.5 mmol/L (3.5-5.1)
[2022-09-29] MEDS ORDERED: chlordiazePOXIDE HCl 5 MG CAP PO ONE ×3 (05:17→18:56)
[2022-09-29] MEDS: chlordiazePOXIDE HCl 5 MG CAP PO SCH ×4 (05:37→18:00)
[2022-09-29] MEDS: ASPIRIN 81 MG CHEWABLE TABLET PO SCH (09:00)
[2022-09-29] MEDS: FOLIC ACID 1 MG, MULTIVITAMINS INJ 10 ML, THIAMINE HCL 100 MG in NA CHLORIDE 0.9% 1,000 ML IV SCH (09:00)
[2022-09-29] MEDS: ENOXAPARIN 40 MG/0.4 ML SQ SCH (09:00)
[2022-09-29] MEDS ORDERED: ASPIRIN 81 MG CHEWABLE TABLET ONE (09:18)
[2022-09-29] MEDS ORDERED: ENOXAPARIN 40 MG/0.4 ML SQ ONE (09:19)
[2022-09-29] MEDS: LORazepam 2 MG/ML VIAL IV PRN ×2 (09:36→22:04)
--- NOTE | 2022-09-29 10:59 | RAD REPORT ---
EXAM DESCRIPTION: MRI - Brain Wo Cont - 09/29/2022 10:35 am CLINICAL HISTORY: Seizure, right-sided weakness COMPARISON: No comparisons TECHNIQUE: Sagittal T1-weighted images were obtained along with axial PD, heavily T2-weighted and T2 -FLAIR images. Axial DWI and ADC mapping sequences were also obtained along with coronal heavily T2-w eighted images. FINDINGS: No intracranial hemorrhage, mass or acute infarction. There is no edema or shift of midlin e structures. No extra-axial fluid collections. Valero-matter/white matter junction is preserved. Signa l voids are seen as a normal finding in the major intracranial vessels. Ventricles are normal. There is no volume loss or chronic ischemic change identifiable. The medial temporal lobe assessment is limited due to the amount of motion present on the examination . No medial temporal lobe asymmetry identifiable. Mastoid air cells and paranasal sinuses are clear. IMPRESSION: No acute or subacute infarction. No significant intracranial finding identifiable.
[2022-09-29 15:29] VITALS: BMI 31.2
--- NOTE | 2022-09-29 18:20 | P.PN ---
Subjective Date of Service: 09/29/22 Chief Complaint: Suicide attempt. Overnight, her mental status has improved significantly. We had a lengthy discussion regarding her motives for this suicide attempt, and she mentions that the primary motive was the inability to find a job and the fact that she just lost her job. This is her second suicide attempt, reporting that she attempted to hang herself about a year ago. Following that attempt, she was hospitalized at [facility] in [place], [place]. She states that she does not wish to be in this facility again. She states that she often is stressed and relies on alcohol as a stress reliever. With her permission, I spoke with her psychiatrist, Dr. Ollie Marks. Dr. Marks mentions to me that the last time she saw her was July 2022, and she struggles with alcohol abuse. She had an appointment in mid August 2022, but did not make this appointment. Dr. Marks endorses significant concern that she may attempt suicide again and agrees that she would benefit from inpatient psychiatric hospitalization. Per Dr. Marks, she believes that she has impaired capacity as evidenced by her history of depression, substance abuse, and multiple suicide attempts. I had a thorough discussion with Ms. Pearce regarding a safe disposition plan. Present for this discussion was her father (Mr. Pruett), her mother (Ms. Williamson), her son (Mr. Carter), and her bedside nurse (Ms. Romero RN). I discussed my recommendation for inpatient psychiatric hospitalization and informed her that Dr. Marks shares the same opinion with me. Ms. Pearce agreed with our recommendations and states that she will voluntarily go to an inpatient psychiatric facility for further treatment of her psychiatric condition and alcohol use disorder. Review of Systems 10-point ROS is otherwise unremarkable Other: History of suicidal ideation, intention, plan, and attempt Physical Examination - Vital Signs Temperature: 98.8 F Blood Pressure: 118/78 Pulse: 97 Respirations: 16 Pulse Ox (%): 100 - Physical Exam General: Alert, In no apparent distress, Oriented x3 HEENT: Atraumatic, EOMI, Sclerae nonicteric Neck: JVD not distended Respiratory: Clear to auscultation bilaterally, Normal air movement Cardiovascular: No edema, Regular rate/rhythm, No murmurs Gastrointestinal: Normal bowel sounds, Soft and benign, No tenderness Musculoskeletal: No clubbing Integumentary: No rashes Neurological: Normal speech, Normal affect Assessment And Plan - Plan # Suicide Attempt by Intentional Drug Overdose complicated by likely Serotonin Syndrome (improved) # Acute Metabolic Encephalopathy and Seizure secondary to above # Alcohol Use Disorder # Depression # ADHD - She reports intentionally overdosing on duloxetine, bupropion, and dexme thylphenidate - I have spoken with her psychiatrist Dr. Marks, who recommends inpatient psychiatric hospitalization - [facility] recommended discharge with outpatient psychiatry, which I respectfully disagree with - Myoclonus resolved from yesterday's exam - CT head = "negative non-contrast CT head examination." - MRI brain = "no acute or subacute infarction. No significant intracranial finding identifiable." - Suicide precautions with sitter - Continue banana bag, chlordiazepoxide, and CIWA protocol # KDIGO Stage I Acute Kidney Injury (resolved) - Creatinine = 1.09 -> 0.69 - Urinalysis = 2+ ketones, positive nitrite, 1+ protein - Monitor creatinine and urine output - If worsening, obtain renal ultrasound - Renally dose medications # Possible Sepsis secondary to Urinary Tract Infection She met sepsis criteria based on HR > 90 bpm and WBC > 12,000 and the possible source is urinary. - Sepsis order set was initiated - Initial Lactate was 0.9 - Blood cultures drawn - Broad spectrum antibiotics started: Ceftriaxone - In regards to fluids: - 30 mL/kg of IV fluids was not administered given SBP > 90, MAP > 65, la ctic acid < 4 # Microcytic Anemia - suspect Iron-Deficiency Anemia - Her Mentzer index > 13, which is suspicious for iron-deficiency anemia - Started ferrous sulfate Pardeep Lindquist M.D.
[2022-09-29 20:37] VITALS: O2SAT 100
[2022-09-29] MEDS: CEFTRIAXONE 1,000 MG in NA CHLORIDE 0.9% 50 ML IVPB SCH (21:50)
[2022-09-29] MEDS ORDERED: CEFTRIAXONE 1000 MG/VIAL ONE (21:57)
[2022-09-29] MEDS ORDERED: NA CHLORIDE 0.9% 50 ML ONE (21:58)
[2022-09-30] MEDS: chlordiazePOXIDE HCl 5 MG CAP PO SCH ×4 (01:00→18:00)
[2022-09-30 02:24] LABS: Hematocrit 29.4 % (36.0-45.0)
[2022-09-30] MEDS ORDERED: chlordiazePOXIDE HCl 5 MG CAP PO ONE ×4 (04:50→19:05)
[2022-09-30] MEDS ORDERED: POTASSIUM 25 MEQ EFFERV TAB PO ONE (09:00)
[2022-09-30] MEDS: ENOXAPARIN 40 MG/0.4 ML SQ SCH (09:00)
[2022-09-30] MEDS: ASPIRIN 81 MG CHEWABLE TABLET PO SCH (09:00)
[2022-09-30] MEDS: FOLIC ACID 1 MG, MULTIVITAMINS INJ 10 ML, THIAMINE HCL 100 MG in NA CHLORIDE 0.9% 1,000 ML IV SCH (09:00)
[2022-09-30] MEDS ORDERED: FERROUS SULFATE 325 MG TAB PO SCH (09:00)
[2022-09-30] MEDS ORDERED: ENOXAPARIN 40 MG/0.4 ML SQ ONE (09:44)
[2022-09-30] MEDS ORDERED: POTASSIUM 25 MEQ EFFERV TAB ONE (09:44)
[2022-09-30] MEDS ORDERED: ASPIRIN EC 81 MG TAB PO ONE (09:44)
[2022-09-30] MEDS ORDERED: ASPIRIN 81 MG CHEWABLE TABLET ONE (09:52)
[2022-09-30] MEDS ORDERED: LORazepam 2 MG/ML VIAL ONE (11:03)
[2022-09-30] MEDS: LORazepam 2 MG/ML VIAL IV PRN (11:09)
--- NOTE | 2022-09-30 15:16 | CON ---
Reason For Consultation: Consultation called because of seizure after suicide attempt. History Of Present Illness: Ms. Pearce is a 42-year-old patient with depression, attention deficit h yperactivity disorder, alcohol and cocaine dependency and abuse who apparently attempted suicide migue use she could not find a job. She took reportedly a number of duloxetine, bupropion, and Focalon pil ls. Patient was unable to tell how many she took. Family said she was disoriented and confused and that the patient's mother and father who noticed that she is not doing well. At that point, she repo rtedly went to a seizure which is not described, but the event apparently lasted about a minute and s he was then brought to [facility] for evaluation. Her white blood cell count was elevated a t 13.6, 84% neutrophils, that was possibly related to demargination from seizure. Hemoglobin 10.7. Her INR was normal 1.04. Chemistries showed mild dehydration. Creatinine elevated at 1.09. Her blo od glucose was 155. She had normal calcium, normal liver function studies, normal thyroid function s tudies. Urinalysis showed positive nitrite, 2+ ketone, 1+ protein. Her serum alcohol level was 24 t o half times upper limit of normal. Otherwise, the drug screen was negative. COVID testing negative . Head CT scan showed no acute ischemic or hemorrhagic findings and subsequent brain MRI also showed no acute ischemic or hemorrhagic abnormalities. Studies were unremarkable. She reportedly on furth er evaluation by the hospitalist appeared to have shaking consistent with the serotonergic syndrome w hich is possible as she overdosed those antidepressants which can promote serotonin syndrome. At thi s point, she has largely resolved and normal level of functioning with no antiepileptic medication on board. There is a plan to send her to a psychiatric facility at [facility] in [facility]. Past Medical History: As noted above. Past Surgical History: None. Social History: Patient smokes and drinks alcohol regularly. No IV drug use. Allergies: NO KNOWN DRUG ALLERGIES. Home Medications: Focalin and duloxetine. Focalin 10 mg twice a day. Duloxetine 60 mg at bedtime. Family History: Noncontributory. Review of Systems: Aside from the reason for coming in, she had no fevers, chills, nausea, vomiting, myalgias, arthralgi as, rash, weight change, headache. No genitourinary or gastrointestinal abnormalities. Physical Examination: Vital Signs: Blood pressure 106/64, pulse 84 up to 110, respiratory rate 14 to 18, temperature 98.2, oxygen saturation 99% to 100% on room air, weight 171 pounds, height 5 feet 10 inches. BMI 31.3. General: Ms. Pearce is lying in bed. Her ex- is also lying in the bed with her and her mothe r is at bedside. HEENT: She is normocephalic, atraumatic. Sclerae anicteric. Oropharynx is pink and moist. Neck: Supple. Chest: Clear. Heart: Regular. Extremities: Show no clubbing, cyanosis, or edema. Neurological: She is alert and oriented to person, place, time, and situation. She follows all comm ands appropriately. She has no cranial nerve deficits. No focal motor, coordination, or sensory gai t deficit. Reflexes 2+ upper and lower extremities. Assessment: Ms. Pearce is a 42-year-old patient in the emergency room after a suicide attempt and an apparent seizure likely related to serotonin syndrome. She has no neurological deficits and brain M RI and brain CT scan are unremarkable. She is being treated with Rocephin for urinary tract infectio n. She is currently on aspirin along with Lovenox, ferrous sulfate, folic acid, and Zofran. Plan: She should be admitted to a psychiatric facility to further evaluate and manage her to help mi tigate the risk of additional attempts of suicide and she at this point does not require antiepilepti c medications. She should have all medications carefully monitored and if she is able to at some poi nt, a routine electroencephalogram may be helpful. If this study does show focal abnormalities, ther e is a potential that she may require antiepileptics. If this study is normal, no antiepileptics is likely required. In any event, the patient and family should maintain a seizure diary and after disc harge from perhaps a psychiatric facility, she may follow up in Dr. Storey's office 1 month later. CHRISTOPHER/ELMER Voice ID: [id number] Report ID: [id number]
[2022-09-30 16:32] VITALS: BP 116/64; TEMP 98
--- NOTE | 2022-09-30 18:19 | P.DS ---
Admission Date: 09/28/22 Discharge Date: 09/30/22 Disposition: TRANSFR TO OTHER-PSY/CD/REHAB Discharge Condition: GOOD Reason for Admission: Suicide attempt. Consultations: 1. Neurology Hospital Course: DIAGNOSES: # Suicide Attempt by Intentional Drug Overdose complicated by likely Serotonin Syndrome (improved) # Acute Metabolic Encephalopathy and Seizure secondary to above # Alcohol Use Disorder # Depression # ADHD # KDIGO Stage I Acute Kidney Injury (resolved) # Possible Sepsis secondary to Urinary Tract Infection (resolved) # Microcytic Anemia - suspect Iron-Deficiency Anemia HOSPITAL COURSE: Ms. Heather Pearce is a 42 year old female with a past medical history significant for alcohol use disorder, depression, ADHD, and prior suicide attempt who was admitted to the [facility] on 09/28/2022 for an attempted suicide by intentional drug ingestion. She was admitted to the Medicine service. Upon further evaluation, she was found to have acute metabolic encephalopathy, seizure, and suspected serotonin syndrome. [facility] was contacted by the emergency department, and it was apparently recommended that she be observed for 24 hours with IV fluids. Over her hospital course, her mental status has improved significantly. We had a lengthy discussion regarding her motives for this suicide attempt, and she ment ioned that the primary motive was the inability to find a job and the fact that she just lost her job. This is her second suicide attempt, reporting that she attempted to hang herself about a year ago. Following that attempt, she was hospitalized at [facility] in [place], [place]. She states that she does not wish to be in this facility again. She states that she often is stressed and relies on alcohol as a stress reliever. With her permission, I spoke with her psychiatrist, Dr. Ollie Marks. Dr. Marks mentioned to me that the last time she saw her was July 2022, and she struggles with alcohol abuse. She had an appointment in mid-August 2022, but did not make this appointment. Dr. Marks endorsed significant concern that she may attempt suicide again and agrees that she would benefit from inpatient psychiatric hospitalization. Per Dr. Marks, she believes that she has impaired capacity as evidenced by her history of depression, substance abuse, and multiple suicide attempts. I had a thorough discussion with Ms. Pearce regarding a safe disposition plan. Present for this discussion was her father (Mr. Pruett), her mother (Ms. Williamson), her son (Mr. Carter), and her bedside nurse (Ms. Romero, RN). I discussed my recommendation for inpatient psychiatric hospitalization and informed her that Dr. Marks shares the same opinion with me. Ms. Pearce agreed with our recommendations and states that she will voluntarily go to an inpatient psychiatric facility for further treatment of her psychiatric condition and alcohol use disorder. Neurology was consulted during her stay due to the seizure. Dr. Storey has cleared her for discharge to an inpatient psychiatry hospital with outpatient follow-up. With the assistance of case management, she has been accepted to [facility]. I completed a doc-to-doc with Dr. Morales (a resident physician for Dr. Albaro Gomez), who has accepted her for transfer. I have updated Dr. Marks, and at her request, shared her phone number with Dr. Morales. On 09/30/2022, she was seen on rounds and deemed medically stable for transfer. She and family members were given the opportunity to ask questions and reported no further questions. Furthermore, all questions were answered to the best of my ability. A copy of this discharge summary will be sent to the above providers to f acilitate continuity of care. Today, I personally spent 35 minutes on her case, of which greater than 50% of the time was spent in patient education, counseling, and coordination of care as described above. - Physical Exam General: Alert, In no apparent distress, Oriented x3 HEENT: Atraumatic, EOMI, Sclerae nonicteric Neck: JVD not distended Respiratory: Clear to auscultation bilaterally, Normal air movement Cardiovascular: No edema, Regular rate/rhythm, No murmurs Gastrointestinal: Normal bowel sounds, Soft and benign, No tenderness Musculoskeletal: No clubbing Integumentary: No rashes Neurological: Normal speech, Normal affect Vital Signs/Physical Exam: Temp Pulse Resp BP Pulse Ox 98 F 100 H 18 116/64 99 09/30/22 16:00 09/30/22 16:00 09/30/22 16:00 09/30/22 16:00 09/30/22 16:00 Laboratory Data at Discharge: WBC 8.00 K/uL (4.3-10.9) 09/29/22 02:12 Hgb 9.1 g/dL (12.0-15.0) L 09/30/22 02:08 Hct 29.4 % (36.0-45.0) L 09/30/22 02:08 Plt Count 379 K/uL (152-406) 09/29/22 02:12 PT 11.4 SECONDS (9.5-12.5) 09/28/22 10:50 INR 1.04 09/28/22 10:50 APTT 26.9 SECONDS (24.3-36.9) 09/28/22 10:50 Sodium 139 mmol/L (136-145) 09/29/22 02:13 Potassium 3.5 mmol/L (3.5-5.1) D 09/29/22 02:13 BUN 9 mg/dL (7-18) 09/29/22 02:13 Creatinine 0.69 mg/dL (0.55-1.02) 09/29/22 02:13 Glucose 89 mg/dL (74-106) 09/29/22 02:13 Phosphorus 4.5 mg/dL (2.5-4.9) 09/28/22 10:50 Magnesium 2.2 mg/dL (1.6-2.4) 09/28/22 10:50 Total Bilirubin 0.4 mg/dL (0.2-1.0) 09/28/22 10:50 AST 28 U/L (15-37) 09/28/22 10:50 ALT 37 U/L (13-56) 09/28/22 10:50 Alkaline Phosphatase 82 U/L (45-117) 09/28/22 10:50 Triglycerides 75 mg/dL (<150) 09/29/22 02:13 Cholesterol 148 mg/dL (<200) 09/29/22 02:13 HDL Cholesterol 88 mg/dL (40-60) H 09/29/22 02:13 Cholesterol/HDL Ratio 1.68 09/29/22 02:13 Home Medications: Dexmethylphenidate HCl [Focalin] 10 mg PO BID 09/28/22 Duloxetine HCl 60 mg PO BEDTIME 09/28/22 Ferrous Sulfate 325 mg PO DAILY #30 09/30/22 cephALEXin [Cephalexin] 250 mg PO QID 5 Days #20 09/30/22 chlordiazePOXIDE HCl [Librium*] 10 mg PO Q6HR cap 09/30/22 New Medications: cephALEXin [Cephalexin] 250 mg PO QID 5 Days #20 Ferrous Sulfate 325 mg PO DAILY #30 Physician Discharge Instructions: Continue treatment at [facility] Diet: Finger [place] Activity: Suicide Precautions Followup: Ollie Marks MD [OUTSIDE PHYSICIAN] - Scott Storey MD [ASSOCIATE-ACTIVE - CAN ADMIT] - Time spent managing pt's care (in minutes): 35
== END 2022-09-30 19:20 | DRG 917 ==
LOC: ER 10:38 → ERHOLD 14:46
PROVIDERS: ADMIT Internal Medicine; ATTEND Internal Medicine
DX: T43.212A Poisoning by selective serotonin and norepinephrine reuptake inhibitors, intentional self-harm, initial encounter (principal); A41.9 Sepsis, unspecified organism; G93.41 Metabolic encephalopathy; N39.0 Urinary tract infection, site not specified; G40.89 Other seizures; N17.9 Acute kidney failure, unspecified; F14.20 Cocaine dependence, uncomplicated; E86.0 Dehydration; D50.9 Iron deficiency anemia, unspecified; T43.292A Poisoning by other antidepressants, intentional self-harm, initial encounter; T43.632A Poisoning by methylphenidate, intentional self-harm, initial encounter; F32.A Depression, unspecified; F90.9 Attention-deficit hyperactivity disorder, unspecified type; F10.10 Alcohol abuse, uncomplicated; D63.8 Anemia in other chronic diseases classified elsewhere; D72.829 Elevated white blood cell count, unspecified; F17.200 Nicotine dependence, unspecified, uncomplicated; Z23 Encounter for immunization; Z91.51 Personal history of suicidal behavior; Z79.899 Other long term (current) drug therapy; Z20.822 Contact with and (suspected) exposure to COVID-19
CPT/HCPCS: 36415; 70450; 70551; 80048; 80061; 80076; 80307; 81003; 81025; 82550; 83605; 83735; 84100; 84439; 84443; 85014; 85018; 85025; 85610; 85730; 87040; 87811; 90471; 93005; 96360; 96361; 99285; G0480; J1650; J3411; J7030; Q2035